=== PATIENT | male | born 1960 | race Caucasian/White ===

== ENCOUNTER 2025-08-04 09:31 | Outpatient (CLI) | payer BC, SELFPAY ==
[2025-08-04 10:15] LABS: PCR FLU A Negative PCR FLU A (Negative); PCR FLU B Negative PCR FLU B (Negative); PCR RSV Negative PCR RSV (Negative); SARS PCR* POSITIVE SARS-CoV-2 (Negative)
== END 2025-08-04 09:32 | disposition home or self-care (01) ==
LOC: FRMREF 09:37
PROVIDERS: Visit Provider Family Medicine
DX: R05.9 Cough, unspecified (principal)
CPT/HCPCS: 87631